=== PATIENT | female | born 1990 | race Caucasian/White ===

== ENCOUNTER 2016-05-06 05:03 | Emergency (ER) | payer MEDICAID | END 2016-05-06 05:50 | disposition home or self-care (01) | LOC: D.ER 05:03 | DX: H66.92 Otitis media, unspecified, left ear (principal); F41.9 Anxiety disorder, unspecified; F32.9 Major depressive disorder, single episode, unspecified ==

== ENCOUNTER 2016-05-11 12:34 | Emergency (ER) | payer MEDICAID | END 2016-05-11 13:53 | disposition home or self-care (01) | LOC: D.ER 12:34 | DX: H66.92 Otitis media, unspecified, left ear (principal); J01.90 Acute sinusitis, unspecified ==

== ENCOUNTER → 2016-12-14 13:44 | Outpatient (CLI) | payer MEDICAID | END | disposition home or self-care (01) | LOC: D.US 12-12 08:00 | DX: N64.4 Mastodynia (principal) ==

== ENCOUNTER 2017-01-07 23:39 | Emergency (ER) | payer MEDICAID ==
[2017-01-08 00:44] LABS: APPEARANCE TURBID (CLEAR); BILIRUBIN NEGATIVE (NEGATIVE); COLOR YELLOW (YELLOW); GLUCOSE NEGATIVE (NEGATIVE); KETONE NEGATIVE (NEGATIVE); NITRITE NEGATIVE (NEGATIVE); PROTEIN TRACE mg/dL (NEGATIVE); UROBILINOGEN NORMAL (NORMAL)
[2017-01-08 00:45] LABS: BACTERIA MANY /hpf (NONE SEEN); RED CELLS - URINE 0-5 /hpf (0-5); WHITE CELLS - URINE 0-5 /hpf (0-5)
== END 2017-01-08 01:00 | disposition home or self-care (01) ==
LOC: D.ER 23:39
PROVIDERS: Family Medicine
DX: J20.9 Acute bronchitis, unspecified (principal); H66.92 Otitis media, unspecified, left ear

== ENCOUNTER 2017-04-10 10:58 | Emergency (ER) | payer MEDICAID ==
[2017-04-10 11:50] LABS: APPEARANCE HAZY (CLEAR); BILIRUBIN NEGATIVE (NEGATIVE); COLOR YELLOW (YELLOW); GLUCOSE NEGATIVE (NEGATIVE); KETONE NEGATIVE (NEGATIVE); NITRITE NEGATIVE (NEGATIVE); PROTEIN NEGATIVE (NEGATIVE); SPECIFIC GRAVITY 1.005 (1.005-1.020)
[2017-04-10 12:35] LABS: BASOPHILS 0.4 % (0-2); EOSINOPHILS 1.6 % (0-7); HEMATOCRIT 37.9 % (36.0-48.0); HEMOGLOBIN 12.6 g/dL (12-16); IMMATURE GRANULOCYTES 0.4 % (0-5); LYMPHOCYTES 30.1 % (15-50); MCH 29.8 pg (26.0-34.0); MCHC 33.2 g/dL (31.0-37.0); MCV 89.6 fL (80.0-100.0); MEAN PLATELET VOLUME 9.4 fL (7.4-10.4); MONOCYTES 6.2 % (2-11); NEUTROPHILS 61.3 % (40-80); PLATELET COUNT 306 10x3/uL (130-400); RBC 4.23 10x6/uL (4.00-5.40); RDW 13.2 % (11.5-14.5); WBC 7.4 10x3/uL (4.8-10.8)
== END 2017-04-10 14:04 | disposition home or self-care (01) ==
LOC: D.ER 10:58
PROVIDERS: Family Medicine
DX: H66.92 Otitis media, unspecified, left ear (principal); H92.02 Otalgia, left ear

== ENCOUNTER 2017-06-17 16:29 | Emergency (ER) | payer MEDICAID ==
[2017-06-17 21:24] LABS: BASOPHILS 0.2 % (0-2); EOSINOPHILS 1.5 % (0-7); HEMATOCRIT 39.7 % (36.0-48.0); HEMOGLOBIN 13.3 g/dL (12-16); IMMATURE GRANULOCYTES 0.3 % (0-5); LYMPHOCYTES 28.8 % (15-50); MCH 29.7 pg (26.0-34.0); MCHC 33.5 g/dL (31.0-37.0); MCV 88.6 fL (80.0-100.0); MEAN PLATELET VOLUME 9.3 fL (7.4-10.4); MONOCYTES 6.8 % (2-11); NEUTROPHILS 62.4 % (40-80); PLATELET COUNT 330 10x3/uL (130-400); RBC 4.48 10x6/uL (4.00-5.40); RDW 12.8 % (11.5-14.5); WBC 12.5 10x3/uL (4.8-10.8)
[2017-06-17 21:38] LABS: ALBUMIN 3.9 g/dL (3.4-5.0); ALKALINE PHOSPHATASE 80 U/L (46-116); ALT (SGPT) 32 U/L (10-68); C-REACTIVE PROTEIN 0.9 mg/dL (0.0-0.9); CALC OSMOLALITY 277 mosm/kg (275-300); CALCIUM 9.4 mg/dL (8.5-10.1); CARBON DIOXIDE 27.5 mmol/L (21.0-32.0); CHLORIDE - SERUM 105 mmol/L (98-107); CREATININE - SERUM 0.8 mg/dL (0.6-1.3); GLUCOSE 90 mg/dL (74-106); POTASSIUM - SERUM 3.9 mmol/L (3.5-5.1); PROTEIN - SERUM 7.9 g/dL (6.4-8.2); SODIUM 140 mmol/L (136-145); UREA NITROGEN 10 mg/dL (7-18); eGFR NON AFRICAN AMERICAN > 90 mL/min (90-120)
[2017-06-17 22:31] LABS: ERYTHROCYTE SEDIMENTATION RATE 20 mm/hr (0-20)
[2017-06-21 07:39] LABS: ANA REFLEX - DIRECT Negative (Negative)
== END 2017-06-17 21:57 | disposition home or self-care (01) ==
LOC: D.ER 16:29
PROVIDERS: Physician Assistant
DX: M79.1 Myalgia (principal); R53.83 Other fatigue; M25.572 Pain in left ankle and joints of left foot; M25.571 Pain in right ankle and joints of right foot; M25.542 Pain in joints of left hand; M25.541 Pain in joints of right hand; E28.2 Polycystic ovarian syndrome

== ENCOUNTER 2018-08-18 20:34 | Emergency (ER) | payer MEDICAID ==
[~2018-08-18] VITALS: Ht 167.6 cm; Wt 113.6 kg
[2018-08-18 20:36] VITALS: Ht 167.6 cm; Wt 113.6 kg
[2018-08-18] MEDS ORDERED: ACETAZOLAMIDE250 MG PO (20:40)
[2018-08-18] MEDS ORDERED: LAMICTAL25 MG (20:40)
[2018-08-18] MEDS ORDERED: NORVASC5 MG PO (20:40)
[2018-08-18] MEDS ORDERED: TOPAMAX50 MG PO (20:41)
[2018-08-18] MEDS ORDERED: PENICILLIN V P500 MG PO (21:01)
[2018-08-18] MEDS ORDERED: NAPROSYN500 MG PO (21:01)
[2018-08-18 21:25] VITALS: BP 136/76
== END 2018-08-18 21:25 | disposition home or self-care (01) ==
LOC: D.ER 20:34
DX: R68.84 Jaw pain (principal)